=== PATIENT | male | born 1975 | race Caucasian/White ===

== ENCOUNTER 2025-02-01 15:58 | Inpatient (IN) | payer OTHER, SELFPAY ==
[2025-02-01] VITALS (62 sets, daily range): BP systolic 139–205; BP diastolic 91–146; PULSE 90–122; RESP 10–27; TEMP 36.9; O2SAT 93–97
--- NOTE | 2025-02-01 15:45 | RT.EKG_ITS ---
APPROVED REPORT Exam: Resting ECG Reason for Exam: L side numbness Patient Location: E HR:110 bpm ECG Measurements Heart Rate 110 AXIS GA 156 P 73 QRSd 98 QRS -23 QT 348 T 52 QTc 470 Conclusion Sinus tachycardia...rate> 99
--- NOTE | 2025-02-01 16:00 | DI.RAD_ITS ---
Exam(s) XR CHEST 2V PA LATERAL EXAM: XR CHEST 2V PA LATERAL CLINICAL HISTORY: Numbness. TECHNIQUE: 2D digital imaging was performed. COMPARISON: No exams were available for comparison FINDINGS: 2 views: Chest leads in place Heart size upper normal. The mediastinum is not widened Lungs are clear. No infiltrates nor pleural effusions. IMPRESSION: No acute pulmonary findings. DATA REPOSITORY: RADIATION DOSE DELIVERED:
--- NOTE | 2025-02-01 16:00 | DI.CT_ITS ---
Exam(s) CT BRAIN NECK CTA EXAM: CT BRAIN NECK CTA CLINICAL HISTORY: Numbness left side. TECHNIQUE: Imaging Protocol: Axial CT angiography was performed with multi- slice acquisition and multi-planar and/or 3D reconstructions. CONTRAST MATERIAL: Intravenous: Omnipaque 350 Contrast volume:70 mL COMPARISON: No exams were available for comparison FINDINGS: CTA Neck W: Aortic arch anatomy: The aortic arch anatomy is conventional and there is no significant stenosis at the origin of the great vessels off of the aortic arch. Anterior circulation: There is abnormality in the proximal right common carotid artery starting approximately 1 cm distal to its origin. At this level there appears to be significant narrowing of the effective lumen over a distance of 2 cm. The- distal right common carotid artery is patent. There is no significant plaque at the bulb and proximal right ICA nor within the right ICA in the upper neck. On the left side the common carotid artery is patent without significant stenosis and there is also no stenosis at the carotid bifurcation and proximal left ICA nor within the non tortuous left ICA in the upper neck. Both internal carotid arteries are patent in the skull base-carotid canals. Posterior circulation: Both vertebral arteries originate in conventional fashion off of the subclavian arteries and there is no obvious stenosis at the origin of the right vertebral artery. The origin left vertebral artery is tortuous. Both vertebral arteries exhibit normal luminal diameters within the foramen transversarium. Both vertebral arteries contribute E clear to the formation of the basilar artery at the skull base. CTA Brain W: Anterior circulation: Both internal carotid arteries are patent in the skull base-carotid canals as well as within the cavernous sinuses. The supraclinoid aspects of the ICAs are patent. Both A1 segments are patent as are the anterior cerebral arteries and there is no evidence of aneurysm at the level of the anterior communicating artery. Both middle cerebral arteries are patent with no evidence of significant stenosis nor intraluminal thrombus. There also no aneurysms of these vessels. Posterior circulation: Basilar artery ascends without significant stenosis Distally the basilar artery gives off superior cerebellar arteries and above this level terminates as patent bilateral posterior cerebral arteries. There is no evidence of aneurysm at the tip of the basilar artery nor elsewhere in the [id number]. CT BRAIN: There is no evidence of intracranial hemorrhage, mass effect, or shift of midline structures. There are no extra-axial fluid collections. Ventricles are not enlarged or shifted. There are no ring enhancing lesions in the brain and no abnormal meningeal enhancement. IMPRESSION: 1. There is a significant area of narrowing in the proximal right common carotid artery starting 1 cm distal to the origin of this vessel and continuing for a distance of 2 cm. There is significant circumferential narrowing of the lumen at this level. This does not appear to be artifact. Also not typical location for plaque. This patient has almost no plaque at the carotid bulbs and proximal ICAs on either side of the neck. The opposite-left common carotid artery appears unremarkable. 2. Patent bilateral vertebral arteries. No stenosis nor thrombosis nor dissection of the vertebral arteries. 3. Patent intracranial arteries. 4. No acute intracranial findings in the brain evident on this CT scan. Findings called by myself to ER provider 02/01/2025 at 5 p.m. RADIATION DOSE DELIVERED: 2,176.57mGy.cm Total DLP DATA REPOSITORY: All CT scans at this facility are submitted to the National Radiology Data Registry (NRDR) Dose Index Registry (DIR) with the [employer] (ACR). RADIATION OPTIMIZATION: All CT scans at this facility use at least one of these dose optimization techniques: automated exposure control; mA and/or kV adjustment per patient size (includes targeted exams where dose is matched to clinical indication); or iterative reconstruction.
--- NOTE | 2025-02-01 16:15 | W.ED.GENAD ---
Discharge Plan Disposition Patient Disposition: Admit to [facility] Condition: Serious Discharge Details Clinical Impression: Hypertensive crisis, Brain TIA Admit Date/Time: 02/01/25 20:46 Admit Provider: Yair Florence Attending Provider: Yair Florence Primary Care Provider: None,None ED Provider: Usha Edwards [facility] General Mode of arrival: wheelchair. Date/Time Provider Initiated Documentation: 02/01/25 16:01. Limitations to Documentation: no limitations. Information obtained by: patient, RN notes reviewed and old records reviewed. HPI Narrative: 49-year-old male presents to the ER with chief complaint of left-sided numbness which began approximately 30 minutes prior to arrival. He states that he was in a car seat shop when this began. He is alert and oriented x 4 denies any headache however he is complaining of some left eye blurriness, left-sided numbness and difficulty walking. On initial exam he does have left-sided pronator drift the left upper extremity no leg drop. [employer]igator are equal bilaterally no facial droop tongue is midline. He has decreased sensation noted to his left lower extremity. Does endorse occasional marijuana denies any other drugs or alcohol. He states he is a non-smoker. He is hypertensive and tachycardic upon arrival. Related Data Home Medications ?Medication ?Instructions ?Recorded ?Confirmed Unknown [No Known Home Meds] 02/01/25 02/01/25 Allergies Allergy/AdvReac Type Severity Reaction Status Date / Time Sulfa (Sulfonamide Allergy Mild Unknown Verified 02/01/25 16:05 Antibiotics) penicillin G Allergy Anaphylaxis Verified 02/01/25 16:05 General Stated Complaint: GenMedical KATH: 2 Review of Systems All systems reviewed & are unremarkable except as noted in HPI and below Musculoskeletal Musculoskeletal: Reports abnormal gait and Reports numbness Neurologic Neurologic: Reports as per HPI, Reports abnormal gait and Reports numbness Exam Narrative Exam Narrative: Constitutional: Alert and oriented x3. Appears stated age. Normal body habitus. Head: Normocephalic, no trauma. Eyes: Pupils PERRL, Red reflex noted, EOM's intact. Eyelids symmetrical without lesions, discharge, or swelling. ENT: Bilateral TM's WNL, External ear normal to inspection, no mastoid TTP, swelling, or erythema, Nasal turbinates WNL, no nasal discharge. Normal dentition, Posterior pharynx WNL, no exudate. Chest: RRR, Normal S1, S2, distal pulses intact. Resp: Lungs clear to auscultation bilaterally, no wheezes, rales, or rhonchi. Abdomen: Soft, non-distended, Normoactive bowel sounds all 4 quads. Musculoskeletal: Moves all 4 extremities without difficulty. Skin: No suspicious rashes or lesions. Capillary refill less than 2 sec. Neurologic: Cranial nerves II-XII intact. Alert and oriented x 3. Motor: Left upper extremity pronator drift noted sensory: Decreased on the left upper extremity and left lower extremity. [employer] Investigator equal bilaterally no facial droop tongue midline, no leg drop bilaterally. Intact plantar and dorsiflexion extension. Hematologic/Lymphatic: No ecchymosis, no lymphadenopathy. Course Reevaluation(s) Initial Evaluation: Here with left-sided weakness left pronator drift and trouble walking. Time: 16:00 Reevaluation: Reports that numb sensation has decreased, is able to feel all of his left lower extremity except for his great toe and has some left upper extremity feeling which has returned. Time: 18:07 Consultations Consultation #1: Dr. Johnston with teleneuro Time: 17:47 Consultation #2: Dr. Jorge Jones, [facility] vascular neuro Time: 18:25 Consultation #3: Dr. Yair Florence hospitalist Time: 19:02 Vital Signs Vital signs: Vital Signs Pulse 122 H 02/01/25 16:01 Respiratory Rate 20 02/01/25 16:01 Blood Pressure 205/146 H 02/01/25 16:01 Pulse Oximetry 97 02/01/25 16:01 Pulse 122 H 02/01/25 16:07 Respiratory Rate 20 02/01/25 16:07 Blood Pressure 205/146 H 02/01/25 16:07 Blood Pressure Position Supine 02/01/25 16:01 Pulse Oximetry 97 02/01/25 16:07 Oxygen Delivery Method Room Air 02/01/25 16:01 Oxygen Flow Rate 0 02/01/25 16:01 Pain Level 0 02/01/25 16:07 Medical Decision Making 49-year-old male presents to the ER with chief complaint of left-sided numbness which began approximately 30 minutes prior to arrival. He states that he was in a car seat shop when this began. He is alert and oriented x 4 denies any headache however he is complaining of some left eye blurriness, left-sided numbness and difficulty walking. On initial exam he does have left-sided pronator drift the left upper extremity no leg drop. [employer] Investigator are equal bilaterally no facial droop tongue is midline. He has decreased sensation noted to his left lower extremity. Does endorse occasional marijuana denies any other drugs or alcohol. He states he is a non-smoker. He is hypertensive and tachycardic upon arrival. Workup ordered including CBC CMP urinalysis UDS troponin EKG CT head and neck. Initial NIH score is a 3, He is currently very hypertensive with a blood pressure of 205/146 initially heart rate 122 reports he does have a history of hypertension and was on an unknown blood pressure medication but no longer takes it. 1627: Pt to CT w RN Labetalol 10mg IVP ordered BP 176/124 and additional 10 mg IV ordered. 1708: Spoke with Dr. Sow regarding CT results he is concerned for possible stenotic area of the right carotid artery. Please see official report. Images pushed to [facility] and teleneuro consult ordered. Blood pressure is improved to 156/106 with a total of 20 mg of labetalol IV, Tele-neuro in progress at this time, informed by director staffing that patient reports some improvement in his numb sensation to his left side. 1747: Spoke with Dr. Johnston with [facility] tele-neuro he recommends a road test, and unless significant improvement with ambulation he does recommend TNK if SBP < 180, if no TNK then loading with plavix and ASA. 1800: [facility] transfer center called to speak with Vascular neurology. 1807: Patient road tested, on reevaluation he reports that his sensation has improved to his left lower extremity the only thing that is numb is his great toe, he does report being able to have sensation to his left upper extremity, pronator drift has resolved. I was able to observe him ambulating with a steady gait without assistance no abnormality in his gait. Will give nicardipine drip with a goal of systolic blood pressure less than 180. Will hold off on TNK or tPA until discussion with vascular neurology. 1825: Spoke with Dr. Jorge Jones with vascular neurology he does not recommend urgent transfer at this time and he does not recommend lytics due to the improvement of the numbness. He states that at this time an NIH scale of 1 or 0 does not indicate any need for fibrinolytics. He does recommend an MRI and admission for hypertensive emergency. Will contact hospitalist. 1901: Spoke with Dr. Florence with hospitalist regarding patient case and details he recommends decreasing the nicardipine to 2.5 mg an hour, RN informed and rate changed. Discussed plan of care with patient and family who verbalized understanding. Patient does report that he did feel slightly dizzy. Dr. Florence here at bedside for patient evaluation. He agrees to accept patient for admission. Patient transported up to floor in hemodynamically stable condition. Medical Records Medical records reviewed: Yes I reviewed the patient's medical records. Imaging Data Radiologic Study: Imaging: CT Scan Radiologist's impression: IMPRESSION: 1. There is a significant area of narrowing in the proximal right common carotid artery starting 1 cm distal to the origin of this vessel and continuing for a distance of 2 cm. There is significant circumferential narrowing of the lumen at this level. This does not appear to be artifact. Also not typical location for plaque. This patient has almost no plaque at the carotid bulbs and proximal ICAs on either side of the neck. The opposite-left common carotid artery appears unremarkable. 2. Patent bilateral vertebral arteries. No stenosis nor thrombosis nor dissection of the vertebral arteries. 3. Patent intracranial arteries. 4. No acute intracranial findings in the brain evident on this CT scan. Findings called by myself to ER provider 02/01/2025 at 5 p.m. Lab Data Lab results reviewed: Yes I reviewed the patient's lab results. Labs: Laboratory Tests Range/Units 02/01/25 02/01/25 02/01/25 16:10 16:15 17:10 WBC (4.4-10.8) 10^3/uL 7.49 RBC (4.36-5.78) 10^6/uL 5.52 Hgb (13.5-17.5) g/dL 16.1 Hct (40.0-50.0) % 47.3 MCV (80-95) fL 86 MCH (27.0-33.0) pg 29.2 MCHC (32.0-36.0) % 34.0 RDW (11.8-14.1) % 12.4 Plt Count (130-400) 10^3/uL 214 MPV (8.0-11.0) fL 11.3 H Immature Gran % % 0.3 Neutrophils % % 51.1 Lymphocytes % % 34.0 Monocytes % % 10.8 Eosinophils % % 2.5 Basophils % % 1.3 Nucleated RBC % (0.0-0.3) % 0.0 Absolute Neutrophils (1.2-6.7) 10^3/uL 3.82 Absolute Lymphocytes (1.2-3.4) 10^3/uL 2.55 Absolute Monocytes (0.1-0.8) 10^3/uL 0.81 H Absolute Eosinophils (0.0-0.7) 10^3/uL 0.19 Absolute Basophils (0.0-0.2) 10^3/uL 0.10 PT (9.1-11.1) sec 11.7 H INR (0.9-1.1) 1.2 H APTT (20.6-30.2) sec 26.1 Sodium (136-145) mmol/L 142 Potassium (3.5-5.1) mmol/L 3.3 L Chloride (98-107) mmol/L 103 Carbon Dioxide (21.0-32.0) mmol/L 28.3 Anion Gap (3-11) mmol/L 10.7 BUN (7-18) mg/dL 19 H Creatinine (0.70-1.30) mg/dL 1.2 Est GFR (CKD-EPI 2020) (mL/min/1.73m2) 75.06 Glucose (74-106) mg/dL 93 Calcium (8.5-10.1) mg/dL 9.0 Magnesium (1.8-2.4) mg/dL 2.1 Total Bilirubin (0.2-1.0) mg/dL 0.4 AST (15-37) U/L 21 ALT (16-63) U/L 29 Alkaline Phosphatase (46-116) U/L 106 Troponin I (<or=76) ng/L 30 Total Protein (6.4-8.2) g/dL 8.5 H Albumin (3.4-5.0) g/dL 4.1 Urine Color (Yellow) Yellow Urine Clarity (Clear) Clear Urine pH (5-8) 5.5 Ur Specific [place] (1.005-1.025) 1.015 Urine Protein (Neg-Trace) mg/dL Negative Urine Ketones (Negative) mg/dL Negative Urine Blood (Negative) Negative Urine Nitrite (Negative) Negative Urine Bilirubin (Negative) Negative Urine Urobilinogen (Up to 0.2) mg/dL 0.2 Ur Leukocyte Esterase (Negative) Negative Urine Glucose (Negative) mg/dL Negative Add-On Test Request DONE Critical Care Time Critical Care Time Critical Care Time: Yes Total Critical Care Time: 40 Attestation: I spent greater than 35 minutes addressing this patient's acute life threatening illness. This time was spent engaged in actions directly related to the patient's care. Failure to initiate these interventions would have likely resulted in clinically significant or life threatening deterioration in the patients condition. PFSH All Active Problems (Updated 02/01/25 @ 19:55 by Yair Florence MD) CKD (chronic kidney disease), stage II (Acute) Hypokalemia (Acute) Brain TIA (Acute) Hypertensive crisis (Acute) Social History Smoking risk assessment performed?: No Alcohol Intake: current Alcohol Intake frequency: holidays/special occasions only Drug use: Rarely Substance use type: marijuana
[2025-02-01 16:19] LABS: Abs Immature Grans 0.02 10^3/uL (0.0-0.06); HCT 47.3 % (40.0-50.0); HGB 16.1 g/dL (13.5-17.5); Immature Grans % 0.3 %; MCH 29.2 pg (27.0-33.0); MCHC 34.0 % (32.0-36.0); MCV 86 fL (80-95); MPV 11.3 fL (8.0-11.0); Platelet Count 214 10^3/uL (130-400); RBC 5.52 10^6/uL (4.36-5.78); RDW 12.4 % (11.8-14.1); RDW-SD 39.0 fL; WBC 7.49 10^3/uL (4.4-10.8)
[2025-02-01] MEDS: Omnipaque 350 MG/ML 100 ML BTL IJ (16:39)
[2025-02-01] MEDS: Normal Saline - Diluent 50 ML VIAL IJ (16:40)
[2025-02-01 16:41] LABS: ALT 29 U/L (16-63); AST 21 U/L (15-37); Albumin 4.1 g/dL (3.4-5.0); Alkaline Phosphatase 106 U/L (46-116); Anion Gap 10.7 mmol/L (3-11); BUN 19 mg/dL (7-18); Bilirubin, Total 0.4 mg/dL (0.2-1.0); CO2 28.3 mmol/L (21.0-32.0); Calcium 9.0 mg/dL (8.5-10.1); Chloride 103 mmol/L (98-107); Estimated GFR 75.06 (mL/min/1.73m2); Glucose 93 mg/dL (74-106); Magnesium 2.1 mg/dL (1.8-2.4); Potassium 3.3 mmol/L (3.5-5.1); Sodium 142 mmol/L (136-145); Total Protein 8.5 g/dL (6.4-8.2); Troponin I 30 ng/L (<or=76)
[2025-02-01] MEDS: Labetalol 100 MG/20 ML VIAL 10 MG IVP ×2 (16:46→17:20)
[2025-02-01 17:14] LABS: Lab Add On Test DONE
[2025-02-01 17:24] LABS: Glucose Negative (Negative)
[2025-02-01 17:30] LABS: INR 1.2 (0.9-1.1); PTT Activated 26.1 sec (20.6-30.2); Prothrombin Time 11.7 sec (9.1-11.1)
[2025-02-01 17:35] LABS: Cannabinoids THC Positive (Negative); METHADONE URINE SCREEN Negative (Negative)
[2025-02-01 17:37] LABS: Troponin I 36 ng/L (<or=76)
[2025-02-01] MEDS: niCARdipine 25 MG in Normal Saline 240 ML 50 MG IV (18:18)
[2025-02-01] MEDS: Aspirin 81 MG CHEW 324 MG CH (18:42)
[2025-02-01] MEDS: Clopidogrel 75 MG TAB PO (18:43)
[2025-02-01 19:39] LABS: Troponin I 41 ng/L (<or=76)
--- NOTE | 2025-02-01 19:50 | W.PM.HP.N ---
Date of service: 02/01/25 Time of Service: 19:50 Assessment and Plan Assessment and plan (1) Hypertensive crisis: Status: Acute Assessment and plan: Patient should be allowed to have permissive hypertension in the face of her recent possible CVA versus TIA. Will add hydralazine to be given if systolic is over 180 but the goal would be to keep systolic between 150 and 180. (2) Brain TIA: Status: Acute Assessment and plan: Exact etiology is unknown. Unknown whether this is a CVA or TIA. Thing for certain is that he did not have a hemorrhagic stroke. Pending echocardiogram/MRI/lipid panel/A1c. I did discuss with the family that most likely his MRI will not be done until Monday as this is a critical access hospital. I have also added speech occupational and physical therapy consults (3) Hypokalemia: Status: Acute Assessment and plan: Replenish. (4) CKD (chronic kidney disease), stage II: Status: Acute Assessment and plan: Will monitor. This just needs to be kept in mind and case were giving low-dose of contrast. Patient will be on Lovenox for DVT prophylaxis Patient will be on DVT prophylaxis with Lovenox History of Present Illness History of Present Illness Chief Complaint: LUE/LLE weakness Narrative: This is a 49-year-old gentleman who has a known history of hypertension for which he does not take medication. Patient states that he did take hypertensive medications for some time but quit a few years ago as he was feeling like his blood pressure was under control. Patient presents today with a left upper extremity weakness which resolved and then left upper and lower extremity weakness for which she called his family who brought him to the hospital. On admission he did have some pronator drift on the left side and consultations were made to neurology as well as teleneurology with those results available for review in the ED note. Essentially a decision was made not to transfer or give lytics. Essentially that the patient was improving and most likely to be safe for workup here. Upon my discussion with the patient he states that he has never had symptomology similar to this. Patient states he has never had a CT scan. He denied associated chest pain shortness of breath jaw pain or significant arm pain. His main complaint was a sense of lack of proprioception where his left lower extremity was moving. Patient denied any problems with his speech. Patient denied any significant problems with his balance besides a lack of proprioception. On admission he did have a significantly elevated blood pressure which treatment was treated with IV antihypertensives. At the time of my interview the patient's blood pressure was 150 over approximately 95. Patient states he does not use tobacco or alcohol on a regular basis. Review of Systems All systems reviewed & are unremarkable except as noted in HPI and below PFSH All Active Problems (Updated 02/01/25 @ 19:55 by Yair Florence MD) CKD (chronic kidney disease), stage II (Acute) Hypokalemia (Acute) Brain TIA (Acute) Hypertensive crisis (Acute) Social History Smoking risk assessment performed?: No Alcohol Intake: current Alcohol Intake frequency: holidays/special occasions only Drug use: Rarely Substance use type: marijuana Meds Allergies and Home Medications Allergies Allergy/AdvReac Type Severity Reaction Status Date / Time Sulfa (Sulfonamide Allergy Mild Unknown Verified 02/01/25 16:05 Antibiotics) penicillin G Allergy Anaphylaxis Verified 02/01/25 16:05 Home Medications ?Medication ?Instructions ?Recorded ?Confirmed ?Type Unknown [No Known Home Meds] 02/01/25 02/01/25 History Exam Narrative Exam Narrative: HEENT-normocephalic atraumatic mucous membranes moist oropharynx clear extract motions are intact pupils are equal round reactive to light. Minor plethora was noted. Neck-no lymphadenopathy no JVD no thyromegaly I could not appreciate a bruit. Cardiovascular-tachycardic but no murmur rubs or gallops Lungs-clear to auscultation bilaterally good air exchange no accessory muscle use Abdomen-soft nontender nondistended bowel sounds active Neurologic-cranial nerves II through XII intact as tested patient can raise his eyebrows symmetrically can give a symmetrical smile. 5 out of 5 strength in bilateral upper and lower extremity extremities. Psych-alert and orient x 3 given 1 year history Results Labs 02/01/25 16:10 02/01/25 16:10 Labs: Laboratory Results - last 24 hr 02/01/25 02/01/25 02/01/25 16:10 16:15 17:05 WBC 7.49 RBC 5.52 Hgb 16.1 Hct 47.3 MCV 86 MCH 29.2 MCHC 34.0 RDW 12.4 Plt Count 214 MPV 11.3 H Immature Gran % 0.3 Neutrophils % 51.1 Lymphocytes % 34.0 Monocytes % 10.8 Eosinophils % 2.5 Basophils % 1.3 Nucleated RBC % 0.0 Absolute Neutrophils 3.82 Absolute Lymphocytes 2.55 Absolute Monocytes 0.81 H Absolute Eosinophils 0.19 Absolute Basophils 0.10 PT 11.7 H INR 1.2 H APTT 26.1 Sodium 142 Potassium 3.3 L Chloride 103 Carbon Dioxide 28.3 Anion Gap 10.7 BUN 19 H Creatinine 1.2 Est GFR (CKD-EPI 2020) 75.06 Glucose 93 Calcium 9.0 Magnesium 2.1 Total Bilirubin 0.4 AST 21 ALT 29 Alkaline Phosphatase 106 Troponin I 30 36 Total Protein 8.5 H Albumin 4.1 Urine Color Urine Clarity Urine pH Ur Specific [place] Urine Protein Urine Ketones Urine Blood Urine Nitrite Urine Bilirubin Urine Urobilinogen Ur Leukocyte Esterase Urine Glucose Urine Opiates Screen Urine Methadone Screen Ur Barbiturates Screen Ur Tricyclics Screen Ur Amphetamines Screen U Benzodiazepines Scrn Urine Cocaine Screen Ur THC Screen Add-On Test Request DONE 02/01/25 02/01/25 17:10 19:10 WBC RBC Hgb Hct MCV MCH MCHC RDW Plt Count MPV Immature Gran % Neutrophils % Lymphocytes % Monocytes % Eosinophils % Basophils % Nucleated RBC % Absolute Neutrophils Absolute Lymphocytes Absolute Monocytes Absolute Eosinophils Absolute Basophils PT INR APTT Sodium Potassium Chloride Carbon Dioxide Anion Gap BUN Creatinine Est GFR (CKD-EPI 2020) Glucose Calcium Magnesium Total Bilirubin AST ALT Alkaline Phosphatase Troponin I 41 Total Protein Albumin Urine Color Yellow Urine Clarity Clear Urine pH 5.5 Ur Specific [place] 1.015 Urine Protein Negative Urine Ketones Negative Urine Blood Negative Urine Nitrite Negative Urine Bilirubin Negative Urine Urobilinogen 0.2 Ur Leukocyte Esterase Negative Urine Glucose Negative Urine Opiates Screen Negative Urine Methadone Screen Negative Ur Barbiturates Screen Negative Ur Tricyclics Screen Negative Ur Amphetamines Screen Negative U Benzodiazepines Scrn Negative Urine Cocaine Screen Negative Ur THC Screen Positive A Add-On Test Request Last Vital Signs Pulse 106 H 02/01/25 19:21 Resp 21 02/01/25 19:21 BP 154/96 H 02/01/25 19:21 Pulse Ox 95 02/01/25 19:21 Time Spent Time spent with Patient: <40 minutes Time was spent: preparing to see the patient(eg.review tests), obtaining and/or reviewing separately otained hiistory, ordering medications,tests, procedures, referring, communicating with other health child care associate teacher, indepentently interpreting results, counseling the patient and care coordination
--- NOTE | 2025-02-01 20:42 | W.PC.ACHO ---
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 No CP, left hand weaker than right. Most Recent Vital Signs Pulse 109 H 02/01/25 19:51 Pulse 109 H 02/01/25 19:51 Respiratory Rate 20 02/01/25 19:51 Respiratory Effort Normal, Non-Labored 02/01/25 18:15 Respiratory Depth Normal 02/01/25 18:15 Respiratory Pattern Normal 02/01/25 18:15 Blood Pressure 149/99 H 02/01/25 19:50 Blood Pressure Mean 108 02/01/25 19:50 Blood Pressure Position Supine 02/01/25 16:01 Pulse Oximetry 95 02/01/25 19:51 Oxygen Delivery Method Room Air 02/01/25 17:12 Oxygen Flow Rate 0 02/01/25 17:12 Pain Level 0 02/01/25 17:59 Allergies Sulfa (Sulfonamide Antibiotics) Allergy (Mild, Verified 02/01/25 16:05) Unknown penicillin G Allergy (Verified 02/01/25 16:05) Anaphylaxis Precautions Isolation Standard precaution 02/01/25 16:07 Active Medications Generic Name Dose Route Start Last Admin Trade Name Jazzmine PRN Reason Stop Dose Admin Iohexol 100 ml 02/01/25 16:45 02/01/25 16:39 Omnipaque 350 Mg/Ml 100 Ml Btl IJ 03/03/25 23:59 70 ml DIRECTED FLACO Administration Labetalol HCl 10 mg 02/01/25 17:15 02/01/25 17:20 Labetalol 100 Mg/20 Ml Vial IVP 10 mg NOW FLACO Administration Sodium Chloride 50 ml 02/01/25 16:45 02/01/25 16:40 Normal Saline - Diluent 50 Ml Vial IJ 50 ml DIRECTED FLACO Administration IV IV Catheter Type [] Saline Lock IV Catheter Type [Right Saline Lock Antecubital] IV Catheter Gauge [] 20 IV Catheter Gauge [Right 18 Antecubital] Diet Orders Category Date Time Status DIET [Regular/Normal] [DIET] Nutrition 02/02/25 Breakfast Ordered Diagnostics 02/01/25 02/01/25 02/01/25 Range/Units 19:10 17:10 17:05 WBC (4.4-10.8) 10^3/uL RBC (4.36-5.78) 10^6/uL Hgb (13.5-17.5) g/dL Hct (40.0-50.0) % MCV (80-95) fL MCH (27.0-33.0) pg MCHC (32.0-36.0) % RDW (11.8-14.1) % Plt Count (130-400) 10^3/uL MPV (8.0-11.0) fL Immature Gran % % Neutrophils % % Lymphocytes % % Monocytes % % Eosinophils % % Basophils % % Nucleated RBC % (0.0-0.3) % Absolute Neutrophils (1.2-6.7) 10^3/uL Absolute Lymphocytes (1.2-3.4) 10^3/uL Absolute Monocytes (0.1-0.8) 10^3/uL Absolute Eosinophils (0.0-0.7) 10^3/uL Absolute Basophils (0.0-0.2) 10^3/uL PT (9.1-11.1) sec INR (0.9-1.1) APTT (20.6-30.2) sec Sodium (136-145) mmol/L Potassium (3.5-5.1) mmol/L Chloride (98-107) mmol/L Carbon Dioxide (21.0-32.0) mmol/L Anion Gap (3-11) mmol/L BUN (7-18) mg/dL Creatinine (0.70-1.30) mg/dL Est GFR (CKD-EPI 2020) (mL/min/1.73m2) Glucose (74-106) mg/dL Calcium (8.5-10.1) mg/dL Magnesium (1.8-2.4) mg/dL Total Bilirubin (0.2-1.0) mg/dL AST (15-37) U/L ALT (16-63) U/L Alkaline Phosphatase (46-116) U/L Troponin I 41 36 (<or=76) ng/L Total Protein (6.4-8.2) g/dL Albumin (3.4-5.0) g/dL Urine Color Yellow (Yellow) Urine Clarity Clear (Clear) Urine pH 5.5 (5-8) Ur Specific [place] 1.015 (1.005-1.025) Urine Protein Negative (Neg-Trace) mg/dL Urine Ketones Negative (Negative) mg/dL Urine Blood Negative (Negative) Urine Nitrite Negative (Negative) Urine Bilirubin Negative (Negative) Urine Urobilinogen 0.2 (Up to 0.2) mg/dL Ur Leukocyte Esterase Negative (Negative) Urine Glucose Negative (Negative) mg/dL Urine Opiates Screen Negative (Negative) Urine Methadone Screen Negative (Negative) Ur Barbiturates Screen Negative (Negative) Ur Tricyclics Screen Negative (Negative) Ur Amphetamines Screen Negative (Negative) U Benzodiazepines Scrn Negative (Negative) Urine Cocaine Screen Negative (Negative) Ur THC Screen Positive A (Negative) Add-On Test Request 02/01/25 02/01/25 Range/Units 16:15 16:10 WBC 7.49 (4.4-10.8) 10^3/uL RBC 5.52 (4.36-5.78) 10^6/uL Hgb 16.1 (13.5-17.5) g/dL Hct 47.3 (40.0-50.0) % MCV 86 (80-95) fL MCH 29.2 (27.0-33.0) pg MCHC 34.0 (32.0-36.0) % RDW 12.4 (11.8-14.1) % Plt Count 214 (130-400) 10^3/uL MPV 11.3 H (8.0-11.0) fL Immature Gran % 0.3 % Neutrophils % 51.1 % Lymphocytes % 34.0 % Monocytes % 10.8 % Eosinophils % 2.5 % Basophils % 1.3 % Nucleated RBC % 0.0 (0.0-0.3) % Absolute Neutrophils 3.82 (1.2-6.7) 10^3/uL Absolute Lymphocytes 2.55 (1.2-3.4) 10^3/uL Absolute Monocytes 0.81 H (0.1-0.8) 10^3/uL Absolute Eosinophils 0.19 (0.0-0.7) 10^3/uL Absolute Basophils 0.10 (0.0-0.2) 10^3/uL PT 11.7 H (9.1-11.1) sec INR 1.2 H (0.9-1.1) APTT 26.1 (20.6-30.2) sec Sodium 142 (136-145) mmol/L Potassium 3.3 L (3.5-5.1) mmol/L Chloride 103 (98-107) mmol/L Carbon Dioxide 28.3 (21.0-32.0) mmol/L Anion Gap 10.7 (3-11) mmol/L BUN 19 H (7-18) mg/dL Creatinine 1.2 (0.70-1.30) mg/dL Est GFR (CKD-EPI 2020) 75.06 (mL/min/1.73m2) Glucose 93 (74-106) mg/dL Calcium 9.0 (8.5-10.1) mg/dL Magnesium 2.1 (1.8-2.4) mg/dL Total Bilirubin 0.4 (0.2-1.0) mg/dL AST 21 (15-37) U/L ALT 29 (16-63) U/L Alkaline Phosphatase 106 (46-116) U/L Troponin I 30 (<or=76) ng/L Total Protein 8.5 H (6.4-8.2) g/dL Albumin 4.1 (3.4-5.0) g/dL Urine Color (Yellow) Urine Clarity (Clear) Urine pH (5-8) Ur Specific [place] (1.005-1.025) Urine Protein (Neg-Trace) mg/dL Urine Ketones (Negative) mg/dL Urine Blood (Negative) Urine Nitrite (Negative) Urine Bilirubin (Negative) Urine Urobilinogen (Up to 0.2) mg/dL Ur Leukocyte Esterase (Negative) Urine Glucose (Negative) mg/dL Urine Opiates Screen (Negative) Urine Methadone Screen (Negative) Ur Barbiturates Screen (Negative) Ur Tricyclics Screen (Negative) Ur Amphetamines Screen (Negative) U Benzodiazepines Scrn (Negative) Urine Cocaine Screen (Negative) Ur THC Screen (Negative) Add-On Test Request DONE [id number] Documentation Fingerstick Glucose Start: 02/01/25 16:13 Freq: .Stat Status: Active Protocol: Activity Type Activity Date Activity User E-sign Co-sign Detail Recorded Client Recorded Date Recorded By Document 02/01/25 19:15 THANG ER02 02/01/25 19:15 N.SMIB Intake and Output - 24 Hour Total 02/01/25 15:58 thru 02/01/25 20:00 Intake Total 250.000 Balance 250.000 Weight 90.718 kg Intake: IV 250.000 Falls Risk Assessment History of Falls No History 02/01/25 16:07 Contributing Factors No Factors,Unstable, 02/01/25 16:07 Impairments Ambulatory Aids Independent 02/01/25 16:07 Tubes/Lines None 02/01/25 16:07 Gait Evaluation No gait disturbance 02/01/25 16:07 Cognition No cognitive impairment 02/01/25 16:07 Fall Total Score 6 02/01/25 16:07 Level of Risk Standard/Low Risk 02/01/25 16:07 Problems (Last Reviewed 02/01/25 @ 16:17 by Usha Edwards NP) Brain TIA (Acute) CKD (chronic kidney disease), stage II (Acute) Hypertensive crisis (Acute) Hypokalemia (Acute) v v v v v v v v v Sending and/or Receiving Nurses: Please use comment section below to note any information pertinent to the patient hand-off not included above. Information / Comments: Paged 20:06. Called ED 20:28. ED RN returned call 20:30. Pt arrived approximately 16:00 with unilateral L sided numbness, pronator drift, inability to differentiate light or painful sensation, L eye blurriness, unsteady gait. Resolved in ED, no focal neuro deficits at this time. BP and HR elevated; BP max systolic 206. Given labetalol and nicardipine drip; reduced to 140s/150s, same MAP. Imaging revealed R sided stenosis of carotid, TIA, no evidence of hemorrhagic stroke. Needs echo w/ bubbles, MRI, etc. Being admitted for HTN crisis; nicardipine ended approximately 20:00. Prescribed hydralazine PRN. Not a smoker, but strong fam hx of smoking. Trops 30, 36, and 41 (19:10). Generally healthy, no home meds, no PCP (provided info, will want to go to [facility]). Urine + THC. IV 18 R AC, 20 R FA. Still tachy at times (currently HR 99), possibly situational. BP currently 152/103. Being allowed permissive HTN in setting of stenosis, parameters to be set by Dr. Florence. Belly soft/nontender, lungs clear, 95% RA. Voiding appropriately. Skin intact, flush to face. Report received from: BETHANY Salinas RN
[2025-02-01] MEDS: Normal Saline Flush 10 ML SYR IVP (21:24)
[2025-02-01] MEDS: POTASSIUM CHLORIDE 20 MEQ, POTASSIUM CHLORIDE 10 MEQ 30 MEQ PO (21:28)
[2025-02-01] MEDS: Enoxaparin 40 MG/0.4 ML SYR SC (21:31)
--- NOTE | 2025-02-01 23:45 | RT.EKG_ITS ---
APPROVED REPORT Exam: Resting ECG Reason for Exam: ? st depression lead 2 R/O Patient Location: I HR:88 bpm ECG Measurements Heart Rate 88 AXIS RI 188 P 64 QRSd 94 QRS -9 QT 371 T 78 QTc 449 Conclusion Sinus rhythm...normal P axis, V-rate 50- 99 Low voltage Right atrial abnormality Late transition Diffuse ST-T abnormalities
[2025-02-02] VITALS (12 sets, daily range): BP systolic 135–178; BP diastolic 90–122; PULSE 89–124; RESP 15–19; TEMP 36.2–37.2; O2SAT 95–97
[2025-02-02] MEDS: hydrALAZINE 20 MG/ML VIAL 10 MG IVP ×2 (00:05→06:51)
[2025-02-02] MEDS: Normal Saline Flush 10 ML SYR IVP ×3 (00:06→19:32)
[2025-02-02 07:27] LABS: Calculated LDL 190 mg/dL (<100); Cholesterol 272 mg/dL (<200); HDL Cholesterol 43 mg/dL (>or=40); TSH 3.30 uIU/mL (0.36-3.74); Triglyceride 198 mg/dL (<150)
[2025-02-02 07:55] LABS: Hemoglobin A1C 5.9 % (<5.7)
--- NOTE | 2025-02-02 08:29 | INITIAL_ITS ---
Date of service: 02/02/25 Time of Service: 08:29 Care Management Initial Assmt Initial Assessment Reason for Hospitalization: hypertensive emergency Functional Status/Living Situation Patient Presentation: Pradip was sitting up in bed when CM met with him. He did not sleep well last night and spent much of the day napping. Pradip was pleasant in manner and easily engaged with CM. He was admitted with a TIA vs stroke. He still has numbness/tingling on the left side of his body including his face and extremities. He shared that it feels like it does when your arm or leg falls asleep. He is scheduled to have an MRI and Echo tomorrow. Pradip lives in [place] but works at [employer] in [facility]. He does not receive any community services and does not need any DME for ambulatory assistance. Pradip had a PT evaluation today and was told that his strength is good and he is safe to go home. Outpatient PT was recommended. Town of Residence: [place] Employment Status: Employed Instrumental Activities of Daily Living (ADLs): Independent Medications Medication Management: No Issues/Barriers identified Physical Functioning/Mobility Assistive Device: none Advance Directives Advance Directives: Do you have an Advance Directive: N , 14:58 AD On File at [facility]: N 09/21/23, 14:52 Date Asked 02/01/25 02/01/25, 16:01 AD Date Reviewed COLST On File at [facility] No 02/01/25, 16:01 COLST Date Scanned Code Status Resuscitation Status Full Code Portal Pt does not currently have a portal and education provided: Yes Insurance Coverage/Financial Issues Insurance: BC/BS - will get insurance cards tomorrow Care Team Visit Care Team Role Provider Type Olu Stanley MD MD [facility] STAFF PHYSICIAN None None Primary Care Provider NON-[facility] STAFF PHYSICIAN Amaya Ace Other Providers REG OCCUPATIONAL THERAPIST Stephany Pizano, DEMENTIA PROGRAM DIRECTOR Other Providers SPEECH LANGUAGE PATHOLOGIST Saji Guillaume, DEMENTIA PROGRAM DIRECTOR Other Providers SPEECH LANGUAGE PATHOLOGIST Yelena Durham Other Providers SPEECH LANGUAGE PATHOLOGIST Cassy Dorsey, DEMENTIA PROGRAM DIRECTOR Other Providers SPEECH LANGUAGE PATHOLOGIST Tamra Morse, DEMENTIA PROGRAM DIRECTOR Other Providers SPEECH LANGUAGE PATHOLOGIST Surinder Cantu Other Providers OTHER Usha Edwards, DERECK Emergency Provider NURSE PRACTITIONER Yair Florence MD Admit Provider [facility] STAFF PHYSICIAN Attending Provider Discharge Potential Discharge Needs: Other (will need to establish with a PCP) Anticipated Barriers to Discharge: None Identified Patient/Family Education Needs: Review discharge instructions, discuss Ask Me Three Transportation: Private vehicle Plan: Anticipate Pradip will be discharged home with no new services when medically cleared. He will follow up with the provider assigned for follow up and will trabnsport with friends/family. CM will follow and continue to address discharge planning concerns. Social Determinants of Health Screening Social Determinants of health last assessed in clinic: 02/02/25 Will the Patient Participate in the Screening?: Yes Do you worry about having a steady place to live?: no Problems where you live: no known problems In the past 12 months, have you had to go without electric, gas, oil or water in your home?: no 1. Within the past 12 months, we worried whether our food would run out before we got money to buy more.: Never true 2. Within the past 12 months, the food we bought just didn't last and we didn't have money to get more.: Never true Has lack of transportation kept you from medical appointments or from doing things needed for daily living?: no Has anyone in your life made you feel unsafe or unsupported?: no How hard is it for you to pay for the very basics like food, housing, medical care, and heating? Would you say it is:: Not hard at all Do you want help finding or keeping work or a job?: I do not need or want help If for any reason you need help with day-to-day activities such as bathing, preparing meals, shopping, managing finances, etc., do you get the help you need?: I don?t need any help How often do you feel lonely or isolated from those around you?: Rarely Do you speak a language other than [place] at home?: No Does the patient want assistance with any of the above?: No Health Related Social Needs Health related social needs: feeling lonely/isolated (Z60.8) Health related social needs details: Pt denies needs for any support at this time PFSH All Active Problems (Updated 02/01/25 @ 19:55 by Yair Florence MD) CKD (chronic kidney disease), stage II (Acute) Hypokalemia (Acute) Brain TIA (Acute) Hypertensive crisis (Acute) Social History Smoking risk assessment performed?: No Alcohol Intake: current Alcohol Intake frequency: holidays/special occasions only Drug use: Rarely Substance use type: marijuana Housing: apartment
[2025-02-02] MEDS: POTASSIUM CHLORIDE 20 MEQ, POTASSIUM CHLORIDE 10 MEQ 30 MEQ PO ×2 (08:44→19:31)
--- NOTE | 2025-02-02 08:53 | W.PM.PROGNOT ---
Date of Service Date of service: 02/02/25 Time of Service: 08:53 Assessment and Plan Assessment and plan (1) Hypertensive crisis: Status: Acute Assessment and plan: - Patient initially presented with blood pressure systolic in the 200s which improved after labetalol - Given concern for CVA versus TIA (see below for details), permissive hypertension will be allowed - Patient's blood pressures have been in the 140s systolic, will continue to monitor allow permissive hypertension for next 12 hours and then initiate antihypertensive if needed (2) Brain TIA: Status: Acute Assessment and plan: - At this time unsure if this is a CVA or TIA, though most symptoms have resolved the exception of some minimal reported numbness in patient's left thumb - CT without any acute findings - [facility] neurolog[place] was consulted and recommended MRI and echocardiogram which were ordered for 02/03/2025 - Cholesterol noted to be high, will start Lipitor 80 mg at bedtime (3) Hypokalemia: Status: Acute Assessment and plan: - Noted to be 3.3 was replaced, will follow-up a.m. potassium (4) CKD (chronic kidney disease), stage II: Status: Acute Assessment and plan: -Appears to be baseline - Will monitor given IV contrast Subjective Subjective Interval history since last seen: Patient states that he is feeling much better today with only some residual numbness in his left hand. He understands a plan to remain hospitalized and obtain echocardiogram and MRI tomorrow 02/03/2025. Otherwise he has no other complaints concerns at this time. Exam Narrative Exam Narrative: Well-appearing gentleman laying in bed in no acute distress, ANO x 4, heart regular rhythm, lungs bilaterally, abdomen soft, nontender, nondistended, cranial nerves II through XII intact with normal sensation and strength in bilateral upper and lower extremities Objective Last Vital Signs Temp 97.7 F 02/02/25 07:12 Pulse 109 H 02/02/25 07:12 Resp 18 02/02/25 07:12 BP 144/90 H 02/02/25 07:12 Pulse Ox 96 02/02/25 07:12 Laboratory Results - last 24 hr 02/01/25 02/01/25 02/01/25 16:10 16:15 17:05 WBC 7.49 RBC 5.52 Hgb 16.1 Hct 47.3 MCV 86 MCH 29.2 MCHC 34.0 RDW 12.4 Plt Count 214 MPV 11.3 H Immature Gran % 0.3 Neutrophils % 51.1 Lymphocytes % 34.0 Monocytes % 10.8 Eosinophils % 2.5 Basophils % 1.3 Nucleated RBC % 0.0 Absolute Neutrophils 3.82 Absolute Lymphocytes 2.55 Absolute Monocytes 0.81 H Absolute Eosinophils 0.19 Absolute Basophils 0.10 PT 11.7 H INR 1.2 H APTT 26.1 Sodium 142 Potassium 3.3 L Chloride 103 Carbon Dioxide 28.3 Anion Gap 10.7 BUN 19 H Creatinine 1.2 Est GFR (CKD-EPI 2020) 75.06 Glucose 93 Hemoglobin A1c Calcium 9.0 Magnesium 2.1 Total Bilirubin 0.4 AST 21 ALT 29 Alkaline Phosphatase 106 Troponin I 30 36 Total Protein 8.5 H Albumin 4.1 Triglycerides Total Cholesterol LDL Cholesterol, Calc HDL Cholesterol TSH Urine Color Urine Clarity Urine pH Ur Specific [place] Urine Protein Urine Ketones Urine Blood Urine Nitrite Urine Bilirubin Urine Urobilinogen Ur Leukocyte Esterase Urine Glucose Urine Opiates Screen Urine Methadone Screen Ur Barbiturates Screen Ur Tricyclics Screen Ur Amphetamines Screen U Benzodiazepines Scrn Urine Cocaine Screen Ur THC Screen Add-On Test Request DONE 02/01/25 02/01/25 02/02/25 17:10 19:10 06:16 WBC RBC Hgb Hct MCV MCH MCHC RDW Plt Count MPV Immature Gran % Neutrophils % Lymphocytes % Monocytes % Eosinophils % Basophils % Nucleated RBC % Absolute Neutrophils Absolute Lymphocytes Absolute Monocytes Absolute Eosinophils Absolute Basophils PT INR APTT Sodium Potassium Chloride Carbon Dioxide Anion Gap BUN Creatinine Est GFR (CKD-EPI 2020) Glucose Hemoglobin A1c 5.9 H Calcium Magnesium Total Bilirubin AST ALT Alkaline Phosphatase Troponin I 41 Total Protein Albumin Triglycerides 198 H Total Cholesterol 272 H LDL Cholesterol, Calc 190 H HDL Cholesterol 43 TSH 3.30 Urine Color Yellow Urine Clarity Clear Urine pH 5.5 Ur Specific [place] 1.015 Urine Protein Negative Urine Ketones Negative Urine Blood Negative Urine Nitrite Negative Urine Bilirubin Negative Urine Urobilinogen 0.2 Ur Leukocyte Esterase Negative Urine Glucose Negative Urine Opiates Screen Negative Urine Methadone Screen Negative Ur Barbiturates Screen Negative Ur Tricyclics Screen Negative Ur Amphetamines Screen Negative U Benzodiazepines Scrn Negative Urine Cocaine Screen Negative Ur THC Screen Positive A Add-On Test Request Time Spent with Patient Time Spent with Patient: >50 minutes Time was spent: preparing to see the patient(eg.review tests), obtaining and/or reviewing separately [facility], ordering medications,tests, procedures, referring, communicating with other health manager home healthcare, indepentently interpreting results, counseling the patient and care coordination
--- NOTE | 2025-02-02 12:55 | PHA.REVIEW2 ---
Pharmacy Admission Review Admission Clinical Review Admission Pharmacy Review: CKD (chronic kidney disease), stage II (Acute) Hypokalemia (Acute) Brain TIA (Acute) Hypertensive crisis (Acute) Sulfa (Sulfonamide Antibiotics) Allergy (Mild, Verified 02/01/25 16:05) Unknown penicillin G Allergy (Verified 02/01/25 16:05) Anaphylaxis Resuscitation Status Full Code Height 5 ft 6 in Weight 86.2 kg Pharmacy Admission Review Renal Dosing Renal Dosing: BUN 19 mg/dL (7-18) H 02/01/25 16:10 Creatinine 1.2 mg/dL (0.70-1.30) 02/01/25 16:10 Medications needing adjustments: Reviewed (CrCl 78.3 mL/min) List of meds needing interventions: Current medications are okay Anticoagulation Anticoagulation: Hgb 16.1 g/dL (13.5-17.5) 02/01/25 16:10 Hct 47.3 % (40.0-50.0) 02/01/25 16:10 Plt Count 214 10^3/uL (130-400) 02/01/25 16:10 INR 1.2 (0.9-1.1) H 02/01/25 16:15 Creatinine 1.2 mg/dL (0.70-1.30) 02/01/25 16:10 DVT Prophylaxis: Intervened (retimed order to be on even hour) Medications: Enoxaparin (40mg daily) Relevant Labs Relevant Labs: Sodium 142 mmol/L (136-145) 02/01/25 16:10 Potassium 3.3 mmol/L (3.5-5.1) L 02/01/25 16:10 Chloride 103 mmol/L (98-107) 02/01/25 16:10 Magnesium 2.1 mg/dL (1.8-2.4) 02/01/25 16:10 Electrolytes, C-Reactive P, ESR: Reviewed (No new labs for today) DM Control DM Control: Glucose 93 mg/dL (74-106) 02/01/25 16:10 Hemoglobin A1c 5.9 % (<5.7) H 02/02/25 06:16 DM Control: Reviewed Insulin Dosing, Diabetic Medication: No diagnosis in chart for diabetes Cardiac Review Cardiac Review: Troponin I 41 ng/L (<or=76) 02/01/25 19:10 Blood Pressure 152/90 1038 Blood Pressure 144/90 0712 Blood Pressure 149/109 0646 Blood Pressure 146/96 0427 Blood Pressure 146/97 0124 BP, HR, EF%: Reviewed (HR 111) List meds needing interventions: Permissive HTN per H+P QTc Review QTc: Reviewed (EKG report pending) IV to PO Switch IV Medications: Reviewed Home Meds Home Med List reviewed: Reviewed Relevent Home Meds Not ordered & why?: No known home meds Current Meds Current Medication Order Review: Intervened Comments: Changed IV ED access order Discontinued hydralazine order as requested by provider
--- NOTE | 2025-02-02 13:23 | PT.INIE ---
PT Notes Visit Reasons: Cerebrovascular accident Inpatient Physical Therapy Evaluation Date: 02/02/25 Referring Doctor: Dr. Florence Precautions: None Patient Profile/Admitting Diagnosis: CVA PMHX: CKD (chronic kidney disease), stage II (Acute) Hypokalemia (Acute) Brain TIA (Acute) Hypertensive crisis (Acute) Social History/Home Situation: Lives with s/o and father in law in [place], has ramp to enter, works as a regional company flatbed truck driver, no functional limitations at baseline Equipment Owned/DME: none, and does not want any Subjective: Pt admitted following an onset of numbness throughout the left side of his body. He did not have a fall. He notes some weakness but the numbness is his biggest concern. Of note, he does not have a PCP and hasn't seen a doctor in years Objective: General Observation: walking back from bathroom when PT enters room, willing to work with PT Mental Status: A+Ox4 Pain: no pain Vital Signs: spO2 98%, BP 152/90, HR 121 bpm ROM: Full AROM throughout UE and LEs bilaterally Strength: Right Upper Extremity: Grossly 5/5 Left Upper Extremity: Grossly 4+/5 observed with shoulder flex/abd, elbow flex/ext, commercial sales specialist Right Lower Extremity: Grossly 5/5 Left Lower Extremity: Grossly 4+/5 observed with hip flex, knee ext/flex, ankle DF Sensation: hyposenstive throughout LUE going up to forehead, hyposensitive throughout LLE starting at area of hip flexor, however he has some sensation in all spots Bed Mobility/Transfers: supine to sitting independently sitting to supine independently sitting to standing independently standing to sitting independently Gait: ambulates 50 ft w/SBA and no AD - slight lateral sway observed over LLE during stance phase, requested to return to bed due to some dizziness Coordination: Finger to nose - impaired on LUE Heel to little - impaired on LLE Balance: Static Sitting: good Dynamic Sitting: good Static Standing: good Dynamic Standing: good Able to perform SLS w/o UE support on bilat LEs for >10 seconds Special Tests: Mobility Limitations Standardized Measure [facility] AM-PAC 6 clicks Basic Mobility Inpatient Short Form: Raw Score: 22 CMS Score: 20.91% Informed Consent/Education: Patient instructed in purpose of PT consult and plan of care. Assessment: Patient presents with signs of a CVA as he is hyposensitive along the left side of his body which is associated with minor strength and coordination deficits on this side as well. He is able to ambulate w/o any AD and showed the appropriate safety but he did have some dizziness that limited him with this. He is able to perform a single leg stance on his LLE, showing good balance on that side. His pulse is somewhat concerning as he is resting at about 120 bpm at this time. Other vital signs were stable at the time of this PT evaluation. He is safe to be d/c'd home when medically cleared but it is recommended he attend outpatient PT to further progress his function and assess his deficits. He agrees to this. He will continue to be followed by PT. Patient is assessed as a [x] Low 00113 complexity based on the following: History: Low Examination: Low Presentation: Low Decision Making: Low Goals: Goals X1 week 1. Gait - 400 ft independently w/o any AD use 2. Stairs - ascend/descend 4 stairs w/bilat LEs as he may need to perform stairs in the community 3. Independent with home exercise program Plan of Care/Treatment Plan: 1-2x/day, 7 days/week x 1 week. Plan of care has been reviewed with the FURNACE TENDER providing the service under Physical Therapy direction. Initiate Physical Therapy intervention for strengthening, bed mobility, transfers, gait, stairs, balance training, use of assistive device. DISCHARGE RECOMMENDATIONS: [x] Home with outpatient PT TREATMENT CODE/TIME: Darryl Garcia ([id number]) x1 - 30 min
[2025-02-02] MEDS: Atorvastatin 40 MG TAB 80 MG PO (19:31)
[2025-02-02] MEDS: Enoxaparin 40 MG/0.4 ML SYR SC (19:31)
[2025-02-02] MEDS: hydrALAZINE 20 MG/ML VIAL 5 MG IVP (19:54)
--- NOTE | 2025-02-03 | DI.US_ITS ---
Exam(s) US CAROTID EXAM: US CAROTID CLINICAL HISTORY: cva. TECHNIQUE: Ultrasound carotids performed using grayscale, color-flow, and spectral Doppler imaging. COMPARISON: No exams were available for comparison FINDINGS: RIGHT CAROTID ARTERY: Plaque: Minimal. Velocity elevation: None. LEFT CAROTID ARTERY: Plaque: Minimal. Velocity elevation: None. VERTEBRAL ARTERIES: Antegrade flow. Measurements: R Bulb: 93.4cm/s PS / 25.8cm/s ED R CCA: 86.9cm/s PS / 25.8cm/s ED R ECA: 101.4cm/s PS / 18cm/s ED R ICA Prox: 48.2cm/s PS / 19.7cm/s ED R ICA Mid: 37.1cm/s PS / 14.4cm/s ED R ICA Distal: 42.5cm/s PS /17.3cm/s ED R Vert: 63.6cm/s PS / 21.9cm/s ED R SVR: 1.1 R DVR: 1 L Bulb: 75.8cm/s PS / 21.9cm/s ED L CCA: 90.5cm/s PS / 27cm/s ED L ECA: 96cm/s PS / 18cm/s ED L ICA Prox: 57cm/s PS / 21.9cm/s ED L ICA Mid: 46.1cm/s PS / 19.7cm/s ED L ICA Distal: 41.8cm/s PS / 16.7cm/s ED L Vert: 49.8cm/s PS / 16.9cm/s ED L SVR: 0.8 L DVR: 0.8 IMPRESSION: No evidence for hemodynamically significant carotid stenosis. Criteria for Carotid Stenosis: Normal: ICA PSV <125 cm/s no plaque or intimal thickening is visible. <50% stenosis: ICA PSV <125 cm/s and plaque or intimal thickening is visible. 50-69% stenosis: ICA PSV is 125-250 cm/s and plaque is visible. >70% stenosis to near occlusion: ICA PSV >250 cm/s with visible plaque and luminal narrowing. DATA REPOSITORY:
[2025-02-03 03:48] VITALS: BP 160/123; PULSE 110; RESP 17; TEMP 37.3; O2SAT 95
[2025-02-03 07:18] VITALS: BP 157/121; PULSE 114; RESP 17; TEMP 36.5; O2SAT 96
[2025-02-03] MEDS: Normal Saline Flush 10 ML SYR IVP (08:03)
[2025-02-03] MEDS: POTASSIUM CHLORIDE 20 MEQ, POTASSIUM CHLORIDE 10 MEQ 30 MEQ PO (08:03)
--- NOTE | 2025-02-03 08:56 | DI.MRI_ITS ---
Exam(s) MR BRAIN WO EXAM: MR BRAIN WO CLINICAL HISTORY: cva TECHNIQUE: Multiplanar multisequence MRI of the brain was performed. COMPARISON: CT CT BRAIN NECK CTA from 02/01/2025 FINDINGS: VENTRICLES AND EXTRA AXIAL SPACES: Normal in size and morphology for the patient's age. MIDLINE SHIFT: None. CEREBRAL PARENCHYMA: There is a 1.3 cm area of restricted diffusion involving the posterior aspect of the right thalamus consistent with a acute/subacute infarct. No space-occupying lesion identified. HEMORRHAGE: None. BRAINSTEM/CEREBELLUM: Normal. CALVARIUM: Normal. VISUALIZED PARANASAL SINUSES/MASTOIDS:There is a small mucous retention cyst in the left maxillary sinus. The remaining visualized paranasal sinuses are clear. TRIBAL OF [place]: Normal flow void. PITUITARY GLAND: Unremarkable. OTHER FINDINGS: None. IMPRESSION: 1. There is an acute infarct involving the posterior aspect of the right thalamus. 2. Findings were discussed with Dr. Stanley at 9:36 a.m. on 02/03/2025. DATA REPOSITORY:
[2025-02-03 09:42] VITALS: BP 180/122
[2025-02-03] MEDS: Lisinopril 10 MG TAB PO (10:10)
[2025-02-03] MEDS: Aspirin E.C. 81 MG TABEC PO (10:11)
--- NOTE | 2025-02-03 11:10 | PT.INTREAT ---
PT Notes Visit Reasons: Cerebrovascular accident Date: 02/03/2025 PRECAUTIONS: Fall, standard, Activity as tolerated. SUBJECTIVE: Pt in bed when approached for therapy this morning, agreed to participating with therapy session. OBJECTIVE: ? PAIN: none reported VITALS: monitored by nursing ? Therapeutic Activities [id number]: Direct one-on-one instruction in dynamic activities to improve functional performance. ?? BED MOBILITY/TRANSFERS? Rolling L/R: independent Supine-sit: ?independent? Sit-supine: ? independent ? Sit-stand: ? independent? Stand-sit: ??independent ? Bed-Chair:? ?independent ? Chair-bed: independent Provided skilled cues and instruction on performance and technique throughout. Gait Training 33251: Direct one-on-one instruction and skilled instruction in: Movement sequencing Turning and movement with proper form Provided instruction in gait pattern Patient education regarding pacing and breathing techniques to maximize activity tolerance? GAIT? Assistive Device: ?? No AD? Weight bearing: FWB Assist: ? ?independent ? Distance:??600' ? Deviation: ? unremarkable? Neuromuscular Re-education 23983: Activities that facilitate re-education of movement balance, posture, coordination, and proprioception or kinesthetic sense, requiring skilled tactile and verbal cues Exercises/techniques: ??? Pnf D1/D2 Finger resisted extension, flexion, abduction adduction using opposite hand Elastic bandage while doing diagonal lifts and ?chops??? ASSESSMENT:?pt olerated activity well, pt stayed in bed after session to rest. PLAN: Continue with balance training, global strengthening and general conditioning for improved safety, mobility and activity tolerance until pt is ready for DC. TREATMENT CODE/TIME: [id number] 15mins (10:25-10:40am)
[2025-02-03 11:27] VITALS: BP 168/120; PULSE 104; RESP 17; TEMP 36.7; O2SAT 96
--- NOTE | 2025-02-03 13:45 | OTIE_ITS ---
Occupational Therapy Notes Inpatient Occupational Therapy Evaluation Date: 02/03/25 Referring Doctor: Dr. Florence OT Orders: Non Urgent Precautions: Fall, Standard, Full PATIENT PROFILE/ADMITTING DIAGNOSIS: Pt is a 49 year old male who was admitted through the ED for CKD, Hypokalemia, Brain TIA and hypertensive crisis. He has undergone EKG, brain MRI and assessment of the carotid please refer to his EMR for full details at this time. Past Medical History: All Active Problems (Updated 02/01/25 @ 19:55 by Yair Florence MD) CKD (chronic kidney disease), stage II (Acute) Hypokalemia (Acute) Brain TIA (Acute) Hypertensive crisis (Acute) Social History/Home Situation: Pt states that he lives on the first floor of his home. 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 Equipment owned/DME: None SUBJECTIVE: Pt states that he is here with (L) sided weakness. He notes that he was using his RC car when he felt some numbness in his (L) hand. He reports that this did improve but then he felt increased numbness in his face and (L) side. His friend was able to (A) him at the time and he was brought to the ED. He states that he does feel like he has had a significant improvement in his symptoms since monday. OBJECTIVE: General Observation: Pleasant, no visual deficits noted at this time. Mental Status: A&Ox4 Pain: no c/o pain ROM: RUE AROM WFL L UE AROM WFL STRENGTH: RUE 5/5 throughout globally LUE 5/5 throughout globally SENSATION: Diminshed sensation in the (L) UE/LE FUNCTIONAL MOBILITY/ADLS: Transfers (I) BATHING NT with OT but fully functionally (I) for his bathing routines per assessment at this time. DRESSING (I) in seated position with appropriate task time and management GROOMING (I) TOILETING (I) on toilet EATING (I) BALANCE: Static sitting Normal Dynamic Sitting Normal Static Standing Normal Dynamic Standing Normal SPECIAL TESTS: Daily Activity Limitations Standardized Measure [facility] AM -PAC ?6 clicks? Daily Activity Inpatient Short Form: Raw score: 24 Standardized score: 57.54 CMS score: 0.00% INFORMED CONSENT/EDUCATION: Pt instructed in purpose of OT Consult and plan of care. ASSESSMENT: Patient is a 49-year-old male referred to occupational therapy services with diagnosis of CKD, Hypokalemia, Brain TIA, Hypertensive Crisis. Patient presents with clinical signs and symptoms consistent with dx. Pt has some numbness in the (L) UE in the hand and big toe on the (L) LE but otherwise he does appear to be functionally (I) at this time with no need for further services. Patient is assessed as a Low 44339 complexity based on the following: History: see above Examination: see functional limitations if noted above Presentation: evolving Decision Making: AMPAC score 24 GOALS N/A seen for OT consult only. PLAN OF CARE/TREATMENT PLAN: Discharge from skilled OT services. DISCHARGE RECOMMENDATIONS OT recommends that pt return home when medically cleared per MD. He is back to his baseline level of function with some numbness in the UE/LE non limiting to his functional (I) at this time. TREATMENT TIME/MINUTES/CODES 54222, 20 minutes Amaya Ace OTR/L [facility] [place], [place]
--- NOTE | 2025-02-03 14:20 | DSE_ITS ---
Date of service: 02/03/25 Time of Service: 14:20 DS: Diagnosis Discharge Diagnosis (1) Hypertensive crisis: Status: Acute (2) Brain TIA: Status: Acute (3) Hypokalemia: Status: Acute (4) CKD (chronic kidney disease), stage II: Status: Acute (5) Right thalamic stroke: Status: Acute Discharge Plan Disposition Patient Disposition: Home Condition: Good Discharge Details Reason For Visit: CVA Admit Date/Time: 02/01/25 20:46 Admit Provider: Yair Florence Attending Provider: Yair Florence Primary Care Provider: None,None Hospital Course Hospital Course: Patient initially presented with left-sided weakness and numbness that was ultimately determined to be secondary to a right thalamic stroke. Patient symptoms rapidly improved, though left-sided numbness and tingling persisted has been gradually improving over the last 24 hours. Patient had echocardiogram and ultrasound results are currently pending, recommend follow-up with primary care physician if PFO is identified. Patient was started on statin, aspirin and lisinopril for his hypertension is recommended that he continue these medications. Given the patient had improvement of his symptoms and almost complete resolution of his numbness with identification of right thalamic stroke as a cause, he was determined to be stable for discharge home and will follow-up referrals to set up with primary care physician as well as appointment with [facility] neurology. Home Meds and New Rx's Prescriptions: New atorvastatin 40 mg Tablet 80 mg PO QPM Qty: 90 0RF aspirin 81 mg Tablet,Delayed Release (Dr/Ec) 81 mg PO DAILY Qty: 90 0RF lisinopril 10 mg Tablet 10 mg PO DAILY Qty: 90 0RF Discharge Instructions Referrals: NEUROLOGY,[facility] [OTHER, Neurology] Referral Note: Right thalamic CVA Problems: Brain TIA Activity:: Activity as Tolerated Equipment/Supplies:: No Equipment Needed Diet:: As Tolerated Discharge Orders Discharge Orders: Discharge Order (Routine); Ordered 02/03/25 Ordered By: Olu Stanley DS: Summary Time Spent with Patient providing and/or coordinating discharge services: Greater than 30 minutes Status at Discharge Functional status at discharge: independent ambulation Overall status at discharge: patient is back to baseline Mental Status: mental status grossly normal Speech and Movement: speech and movement normal Mood: congruent mood Affect: normal affect Quality:SDOH Health Related Social Needs: Health related social needs lonely/isolated Health related social needs details Pt denies needs fo r any support at this time Health related social needs details: Pt denies needs for any support at this time Exam Narrative Exam Narrative: Well-appearing gentleman laying in bed in no acute distress, ANO x 4, heart regular rhythm, lungs bilaterally, abdomen soft, nontender, nondistended, cranial nerves II through XII intact with normal sensation and strength in bilateral upper and lower extremities Psych Mental Status: mental status grossly normal Speech and Movement: speech and movement normal Mood: congruent mood Affect: normal affect DS: Data Vitals/I&O Vitals and I&O: Vital Signs Temperature 98.1 F 02/03/25 11:27 Temperature Source Temporal Artery Scan 02/03/25 11:27 Pulse 104 H 02/03/25 11:27 Pulse Rhythm Regular 02/01/25 20:45 Pulse 102 H 02/01/25 20:31 Respiratory Rate 17 02/03/25 11:27 Respiratory Effort Normal, Non-Labored 02/01/25 20:45 Respiratory Depth Normal 02/01/25 20:45 Respiratory Pattern Normal 02/01/25 20:45 Blood Pressure 168/120 H 02/03/25 11:27 Blood Pressure Mean 136 02/03/25 11:27 Blood Pressure Position Supine 02/01/25 16:01 Pulse Oximetry 96 02/03/25 11:27 Oxygen Delivery Method Room Air 02/03/25 11:27 Oxygen Flow Rate 0 02/03/25 11:27 Pain Level 0 02/03/25 11:27 Comment Hydralazine administered 20 mins prior; will continue to monitor BP. 02/02/25 00:28 Intake & Output 02/02/25 02/03/25 02/03/25 17:59 05:59 17:59 Intake Total 240 / 240 Balance 240 / 240 Weight 190 lb 0.615 oz 192 lb Intake: IV Oral 240 / 240 Other: Comment pt toilets self PFSH All Active Problems (Updated 02/03/25 @ 14:20 by Olu Stanley MD) Right thalamic stroke (Acute) CKD (chronic kidney disease), stage II (Acute) Hypokalemia (Acute) Brain TIA (Acute) Hypertensive crisis (Acute) Social History Smoking risk assessment performed?: No Alcohol Intake: current Alcohol Intake frequency: holidays/special occasions only Drug use: Rarely Substance use type: marijuana Housing: apartment Time Spent with Patient Time Spent with Patient: <45 minutes Time was spent: preparing to see the patient(eg.review tests), obtaining and/or reviewing separately otained hiistory, ordering medications,tests, procedures, referring, communicating with other health healthcare network pricing consultant, indepentently interpreting results, counseling the patient and care coordination
--- NOTE | 2025-02-03 14:48 | CMDISCH_ITS ---
Date of service: 02/03/25 Time of Service: 14:57 LACE Index Scoring Tool Questions: Length of Stay (in days): 2 Was the patient admitted via the E.D.?: Yes Comorbidities: Liver or Renal Disease E.D. Visits: 1 Answers: Total Score: 11 Risk of Readmission: High Risk Care Management Discharge Plan Reason for Hospitalization: CVA Discharge Plan: Pradip will be discharged home and begin outpatient PT. He will follow up with his community providers and discharge plan of care. He will transport with friends/family. Patient/Family Education Needs: Review of discharge instruction, activity, limitation, and plan of care. Discuss ask me three. SDOH Health Related Social Needs: Health related social needs lonely/isolated Health related social needs details Pt denies needs fo r any support at this time Health related social needs details: Pt denies needs for any support at this time
[2025-02-03 15:12] VITALS: BP 158/108; PULSE 105; RESP 17; TEMP 36.6; O2SAT 97
== END 2025-02-03 16:07 | disposition home or self-care (01) | DRG 65 ==
LOC: ER 20:20 → MS 20:46
PROVIDERS: Admitting Provider Hospitalist; Emergency Provider Registered Nurse Emergency; Responsible Provider Family Medicine; Visit Provider Hospitalist
DX: I63.89 Other cerebral infarction (principal); G81.94 Hemiplegia, unspecified affecting left nondominant side; I16.9 Hypertensive crisis, unspecified; E87.6 Hypokalemia; N18.2 Chronic kidney disease, stage 2 (mild); F12.90 Cannabis use, unspecified, uncomplicated; I12.9 Hypertensive chronic kidney disease with stage 1 through stage 4 chronic kidney disease, or unspecified chronic kidney disease; R45.89 Other symptoms and signs involving emotional state
CPT/HCPCS: 00123; 36415; 36416; 70496; 70498; 80053; 80061; 80307; 93005; 96365; 96366; 96375; 96376; 97161; 97530; 99291; J1650; 70551; 71046; 81003; 83036; 83735; 84443; 84484; 85025; 85610; 85730; 93010; 93306; 93880; 99222; 99233; 99238; J0360; J1920; J2404; J3490

== ENCOUNTER 2025-03-06 08:39 | Outpatient (CLI) | payer OTHER, SELFPAY ==
--- NOTE | 2025-03-06 08:30 | RT.EKG_ITS ---
APPROVED REPORT Exam: Resting ECG Reason for Exam: HTN Patient Location: O HR:85 bpm ECG Measurements Heart Rate 85 AXIS AZ 176 P 56 QRSd 90 QRS -33 QT 339 T 73 QTc 403 Conclusion Sinus rhythm...normal P axis, V-rate 50- 99 Late transition
== END 2025-03-06 08:40 | disposition home or self-care (01) ==
PROVIDERS: Visit Provider Internal Medicine Cardiovascular Disease
DX: I63.81 Other cerebral infarction due to occlusion or stenosis of small artery (principal); I10 Essential (primary) hypertension
CPT/HCPCS: 93010

== ENCOUNTER → 2025-04-10 00:30 | Outpatient (CLI) | payer OTHER, SELFPAY ==
--- NOTE | 2025-04-10 07:00 | DI.NM_ITS ---
APPROVED REPORT Exam: Exercise Treadmill Patient Location: Out-Patient Room/Bed: Stress Nurse: Elle Segal RN Ordering Provider:TYLER GOODD, Contact Number: BMI: 31.14 Baseline Rhythm: Sinus Rhythm Indications: ischemic evaluation, cardiomyopathy, hypertension, rt thalmic stroke Medical History Medical History: R thalmic stroke, EF of 37%, HLD, HTN, CKD, cardiomyopathy Cardiac Medications: atorvastatin, aspirin, metoprolol succinate, sacubitril-valsartan Allergies: penicillin, sulfa Cardiac Risk Factors: family hx, HTN, HLD Previous Cardiac Procedures: n/a Pretest Chest Pain Characteristics: No chest pain Exercise History: Indeterminate Physical Disabilities: n/a Lung Sounds: Clear to auscultation Heart Sounds: Regular Stress Test Details Test: Exercise stress testing was performed using a Quan protocol. Nuclear Acquisition: Rest Tc-99m/Stress Tc-99m 1 day Rest Isotope: Tc-99m Sestamibi. Dose: 10.0 Date: 04/10/2025 Injection Time: 0920 Stress Isotope: Tc-99m Sestamibi. Dose: 30.0 Date: 04/10/2025 Injection Time: 1108 HR Resting HR Supine: 88 bpm Max Heart Rate (APMHR): 172 bpm Resting HR Standin bpm Target HR (85% APMHR): 146 bpm Max HR Achieved: 167 bpm % of APMHR: 97 Recovery HR: 86 bpm HR response to stress: Accelerated HR response to stress BP Resting BP Supine: 140/80 mmHg Resting BP Standin/90 mmHg Max BP: 190/100 mmHg Recovery BP: 110/80 mmHg BP response to stress: Normal blood pressure response to stress. ECG Resting ECG: Sinus Rhythm Ectopy: n/a Stress ECG: Sinus Tachycardia ST Change: No significant ST segment changes noted Arrhythmia: ? SVT Recovery ECG: Sinus Rhythm Recovery ST Change: No significant ST segment changes noted Recovery Arrhythmia: None Clinical Reason for Termination: Fatigue, Target HR Achieved Stress Symptoms: General Fatigue Exercise duration: 04 min23 sec Highest Stage Reached: Stage 2: 2.5 mph at 12% grade. Exercise capacity: 6.28 METs Angina Score: None Rate Pressure Product: [id number] Stress ECG Conclusion 1. Resting EKG showed late transition and nondiagnostic ST-T abnormalities 2. Patient exercised on the Quan protocol and completed workload of 6 METS 3. Normal heart rate and blood pressure response to exercise. The patient achieved 97% of maximal predicted heart rate for age 4. There was no electrocardiographic evidence of myocardial ischemia 5. There were no significant dysrhythmias 6. See MPI report Stress Test Summary STAGE Time (mins) Speed (mph) Grade (%) HR BP SpO2 SYMPTOMS METS Supine 88 140/80 98 Standing 97 130/90 1 3 1.7 10 152 150/90 94 4.5 2 6 2.5 12 167 7 1 min recovery 154 190/100 95 3 min recovery 115 138/90 98 6 min recovery 86 110/80 97 Pt with no symptom complaints during exercise. Pt with accelerated HR response to exercise and abnormal BP response with peak DBP of 100. ?SVT at end of exercise/beginning of recovery. Valsalva maneuver performed by patient and HR decreased. Pt left ambulatory in no acute distress. MPI Conclusion Myocardial perfusion is normal. There is no ischemia or evidence of prior infarction Ejection fraction is greater than 50% with normal wall motion
== END ==
LOC: DI 00:30
PROVIDERS: PCP Physician Assistant; Visit Provider Internal Medicine Cardiovascular Disease
DX: I42.9 Cardiomyopathy, unspecified (principal); I10 Essential (primary) hypertension; I63.81 Other cerebral infarction due to occlusion or stenosis of small artery
CPT/HCPCS: 78452; 93017